=== PATIENT | male | born 1935 | race Caucasian/White ===

== ENCOUNTER 2018-01-24 20:10 | Emergency (ER) | payer MEDICARE, OTHER ==
--- NOTE | 2018-01-24 21:20 | EDM.PDOC ---
ED HPI GENERAL MEDICAL PROBLEM - General Chief Complaint: Genitourinary Problem Stated Complaint: URINATION Time Seen by Provider: 01/24/18 21:18 Source of Information: Reports: Patient, Family () History Limitations: Reports: No Limitations - History of Present Illness INITIAL COMMENTS - FREE TEXT/NARRATIVE: With increased urgency to void x 3 days. Did travel in the car a lot. With history of TURP 3 years ago. Followed by urology. Hx of urinary retention in the past. Denies fever. Able to void clear yellow urine upon arrival to ER for UA. Onset: Gradual Duration: Improving Severity: Mild Improves with: Reports: Movement Worsens with: Reports: Other (sitting) Associated Symptoms: Reports: No Other Symptoms Treatments [employer]: Reports: Other (see below) - Related Data Allergies Allergy/AdvReac Type Severity Reaction Status Date / Time Sulfa (Sulfonamide Allergy Hives Verified 01/24/18 20:53 Antibiotics) Home Meds: Home Meds Allopurinol [Zyloprim] 01/24/18 [History] Clopidogrel [Plavix] 01/24/18 [History] Dabigatran [Pradaxa] 01/24/18 [History] Dexlansoprazole [Dexilant] 01/24/18 [History] Dorzolamide HCl 01/24/18 [History] Dutasteride 01/24/18 [History] Lisinopril [Prinivil] 01/24/18 [History] Nebivolol [Bystolic] 01/24/18 [History] Pravastatin Sodium 01/24/18 [History] Tamsulosin HCl [Flomax] 01/24/18 [History] Zolpidem Tartrate [Zolpidem Tartrate ER] 01/24/18 [History] amLODIPine Besylate [Amlodipine Besylate] 01/24/18 [History] cloNIDine HCl [Catapres] 01/24/18 [History] Past Medical History Cardiovascular History: Reports: Afib, Arrhythmia, Heart Valve Replacement, Stents - Past Surgical History Cardiovascular Surgical History: Reports: Coronary Artery Stent, Valve Replacement GI Surgical History: Reports: Appendectomy, Cholecystectomy Male Surgical History: Reports: Prostatectomy, TURP-Transurethral Resection of Prostate Social & Family History - Tobacco Use Smoking Status *Q: Never Smoker ED ROS GENERAL - Review of Systems Review Of Systems: See Below Constitutional: Reports: No Symptoms HEENT: Reports: No Symptoms Respiratory: Reports: No Symptoms Cardiovascular: Reports: No Symptoms Endocrine: Reports: No Symptoms GI/Abdominal: Reports: No Symptoms : Reports: Urgency, Urinary Retention (? if he is) Musculoskeletal: Reports: No Symptoms ED EXAM, RENAL/ - Physical Exam Exam: See Below Exam Limited By: No Limitations General Appearance: Alert, WD/WN, No Apparent Distress Head: Atraumatic, Normocephalic Neck: Normal Inspection, Supple, Non-Tender, Full Range of Motion Respiratory/Chest: No Respiratory Distress, Lungs Clear, Normal Breath Sounds, No Accessory Muscle Use, Chest Non-Tender Cardiovascular: Normal Peripheral Pulses, Regular Rate, Rhythm, No Edema, No Gallop, No JVD, No Murmur, No Rub GI/Abdominal: Normal Bowel Sounds, Soft, Non-Tender, No Organomegaly, No Distention, No Abnormal Bruit, No Mass (Male) Exam: Other (bladder scan reviewed) Psychiatric: Normal Affect, Normal Mood Course - Vital Signs Last Recorded V/S: Last Vital Signs Temp 97.7 F 01/24/18 21:00 Pulse 82 01/24/18 21:00 Resp 18 01/24/18 21:00 BP 175/87 H 01/24/18 21:00 Pulse Ox 96 01/24/18 21:00 - Orders/Labs/Meds Orders: Active Orders 24 hr Category Date Time Status Bladder Scan [RC] ASDIRECTED Care 01/24/18 20:56 Active UA W/MICROSCOPIC [URIN] Urgent Lab 01/24/18 21:14 Ordered Labs: Laboratory Tests 01/24/18 Range/Units 21:14 Urine Color Yellow Urine Appearance Clear Urine pH 5.0 (4.5-8.0) Ur Specific [place] 1.020 (1.008-1.030) Urine Protein Negative (NEGATIVE) mg/dL Urine Glucose (UA) 50 H (NEGATIVE) mg/dL Urine Ketones Negative (NEGATIVE) mg/dL Urine Occult Blood Trace (NEGATIVE) Urine Nitrite Negative (NEGAITVE) Urine Bilirubin Negative (NEGATIVE) Urine Urobilinogen Normal (NORMAL) mg/dL Ur Leukocyte Esterase Negative (NEGATIVE) Urine RBC 0-5 (0-5) Urine WBC 0-5 (0-5) Ur Epithelial Cells Few Amorphous Sediment Not seen Urine Bacteria Rare Urine Mucus Not seen Departure - Departure Time of Disposition: 21:52 Disposition: Home, Self-Care 01 Condition: Good Clinical Impression: Urinary urgency - Discharge Information *PRESCRIPTION DRUG MONITORING PROGRAM REVIEWED*: Not Applicable *COPY OF PRESCRIPTION DRUG MONITORING REPORT IN PATIENT LM: Not Applicable Referrals: PCP,None [Primary Care Provider] - Forms: ED Department Discharge Additional Instructions: UA normal. Pt able to void and empty bladder fully while here. Reassurance given. To continue meds as prescribed. Consider stopping more often when driving long distances. Hydrate well. Avoid carbonated beverages which can irritate the bladder. - Problem List & Annotations (1) Urinary urgency Status: Acute Priority: Low Current Visit: Yes - My Orders Last 24 Hours: My Active Orders 01/24/18 20:56 Bladder Scan [RC] ASDIRECTED - Assessment/Plan Last 24 Hours: My Active Orders 01/24/18 20:56 Bladder Scan [RC] ASDIRECTED
== END 2018-01-24 22:09 | disposition home or self-care (01) ==
LOC: JP.ED 20:10
DX: R39.15 Urgency of urination (principal); Z88.2 Allergy status to sulfonamides
CPT/HCPCS: 51798; 81001; 99284-25